=== PATIENT | male | born 1975 | race Caucasian/White ===

== ENCOUNTER 2020-07-13 11:16 | Day surgery (SDC) | payer OTHER, SELFPAY ==
--- NOTE | 2020-07-12 16:37 | HP_ITS ---
DATE OF SERVICE: 07/13/2020 PREOPERATIVE DIAGNOSIS: Plantar fasciitis, right foot. PLANNED PROCEDURE: Right foot [place] plantar fasciotomy with Interfyl injection. PAST MEDICAL HISTORY: Broken bones, measles, flat feet. CURRENT MEDICATIONS: None. SURGICAL HISTORY: Eye surgery. FAMILY HISTORY: Denies. SOCIAL HISTORY: The patient is a nonsmoker. Denies any illicit drug use. Relates occasional alcohol use. He is single with no children and listed in the . ALLERGIES: NO KNOWN DRUG ALLERGIES. HOSPITALIZATIONS: Denies. REVIEW OF SYSTEMS: Within normal limits. HISTORY OF PRESENT ILLNESS: This is a 45-year-old male, who presents to my office with continued pain in his right plantar heel, present for several months. The patient has had significant pain with exercising, running, and jogging. This become unresolved, significantly aggravated with standing, walking first thing in the morning after rest and exercise such as running. The patient has tried rest, change in shoes, stretching, cortisone injections x2, icing, and anti-inflammatories without any resolution. The patient tried to move forward with surgical intervention. PHYSICAL EXAMINATION: GENERAL: Reveals a pleasant, alert, well-nourished, well-developed, well-hydrated individual, who demonstrates proper hygiene and body habitus, in no acute distress. He is oriented x3. NEUROLOGIC: Reveals intact sensorium. Pain sensation is normal. Vibratory sensation is intact. Pinprick sensation is normal. There is no anesthesia, burning, paresthesias, or tingling bilaterally. Tarsal tunnel is negative as well as supportive piece to medial calcaneal nerves. VASCULAR: DP and PT pulses are 3/4 bilaterally. Capillary refill is immediate to all digits. Skin temperature, elasticity and turgor and hair growth are normal bilaterally. Pigmentation is normal bilaterally. There is no edema bilaterally. DERMATOLOGIC: Reveals normal texture elasticity and turgor. There are no masses. Interspaces are clear. ORTHOPEDIC: Reveals bilateral pes planus structure. Muscle strength is 5/5 in a symmetrical fashion bilaterally. Heel pain inspection reveals pain on palpation of the plantar fascia of the medial and central bands, intrinsic musculature, infracalcaneal bursa, and medial calcaneal tubercle. There is no pain to the posterior-superior heel. Achilles bursa or tendon sinus tarsi peroneal with lateral heel compression. No limited subtalar joint range of motion, calor, or ecchymosis of the right foot. PLAN: The patient is scheduled for [place] plantar fasciotomy with interval injection surgery. The surgery was discussed in detail with the patient including risks of surgery, not having surgery, the potential surgical complications, anesthesia, and the usual postoperative course. No guarantees were given. Discussed with the patient potential complications such as, but not limited to delayed or nonhealing, chronic pain, recurrence, shortened toes, joint stiffness, failure of the procedure, loss of toe, foot, life, or limb. Alternatives to procedure were also discussed including conservative care. The patient would like to proceed with surgical treatment as well as he will obtain reoperative labs as well as medical clearance for surgery and anesthesia from his primary care physician. He is made aware to stop any and all blood thinners in a week prior to surgery. The patient is made aware of the fact driving may not be allowed during portion of postoperative period. Denies any smoking tobacco products. The patient is to avoid NSAIDs after surgery. He will be partial weightbearing in the right foot with a walking cast boot, which the patient has already at home. The mass that was checked. There are no contraindications for narcotic pain medication. The patient was given Percocet 5/325 mg for breakthrough pain and can take Tylenol as needed postoperatively. Mallika Fernandez DPM LP/PRADIP / [id number]
[2020-07-13 11:52] VITALS: BP 130/83; PULSE 75; RESP 16; TEMP 36.5; O2SAT 98; BMI 28.8
[2020-07-13] MEDS: Lactated Ringers 1,000 ML 50 ML IVCONT (12:15)
--- NOTE | 2020-07-13 12:49 | MHC.SHP ---
Pre-Procedural Eval Section A The patient is an INPATIENT: No Changes since office visit: Yes Patient answered all questions; No Cold of Flu in the past 2 weeks, No New Medical Problems and No Changes in Medication The History & Physical has been completed within 30 days and I have reviewed it.: Yes Section B Chief Complaint: Planter fascial Fibromatosis Allergies: Allergies Allergy/AdvReac Type Severity Reaction Status Date / Time No Known Allergies Allergy Verified 07/13/20 11:39 Plan Patient has been examined and remains a candidate for the planned procedure
--- NOTE | 2020-07-13 13:39 | HO.ANESPROP2 ---
PMF Surgical History Surgical History Hx of eye surgery Social History Social History Smoking Status: Never smoker Use of substances other than those prescribed or required for medical reasons: No Advance Directives: No Advance Directives Information Provided: Yes Meds Allergies Allergy/AdvReac Type Severity Reaction Status Date / Time No Known Allergies Allergy Verified 07/13/20 11:39 Home Medications Medication Instructions Recorded Confirmed Type No Known Home Meds 07/13/20 07/13/20 History Exam Exam Date and Time: July 13, 2020 1339 Height,Weight and Vital Signs: Height 6 ft 1 in Weight 98.883 kg Last Vital Signs Temp 97.7 F 07/13/20 11:52 Pulse 75 07/13/20 11:52 Resp 16 07/13/20 11:52 BP 130/83 07/13/20 11:52 Pulse Ox 98 07/13/20 11:52
[2020-07-13] MEDS: ceFAZolin Sodium/Dextrose,Iso 2 GM/50 ML PIGGYBACK IV (13:44)
--- NOTE | 2020-07-13 14:19 | PM.OP ---
Brief Operative Note Date of Service: 07/13/20 Pre-op diagnosis: Plantar fasciitis right foot Post-op diagnosis: same Procedure: Right foot [place] plantar fasciotomy with interfyl injection Surgeon: Mallika Fernandez Anesthesia: MAC and local Estimated blood loss (mL): 1 Tourniquet time (min): 8 Pathology: none sent Condition: stable Disposition: PACU
[2020-07-13 14:23] VITALS: BP 103/71; PULSE 84; RESP 16; TEMP 36.4; O2SAT 98
[2020-07-13 14:37] VITALS: BP 115/79; PULSE 68; RESP 18; O2SAT 98
--- NOTE | 2020-07-13 15:25 | HO.POSTANES ---
Post Anesthesia Evaluation Post Anesthesia Evaluation Vital Signs: Vital Signs Temp Pulse Resp BP Pulse Ox 07/13/20 14:37 97.6 F 68 18 115/79 98 07/13/20 14:23 97.6 F 84 16 103/71 98 07/13/20 11:52 97.7 F 75 16 130/83 98 Anesthesia: General (TIVA) Mental Status: Awake Pain Control: Satisfactory Nausea/Vomiting: None Hydration: Adequate Anesthesia-Related Issues: No Anes. Related Issues
--- NOTE | 2020-07-24 21:09 | OP_ITS ---
SURGEON: Mallika Fernandez DPM PREOPERATIVE DIAGNOSIS: Plantar fasciitis, right foot. POSTOPERATIVE DIAGNOSIS: Plantar fasciitis, right foot. PROCEDURE PERFORMED: Right foot [place] plantar fasciotomy with Interfyl injection. ESTIMATED BLOOD LOSS: Less than 1 mL. COMPLICATIONS: None. ANESTHESIA: Monitored anesthetic care with local consisting preoperatively of 18 mL of 0.5% Marcaine plain and 2% lidocaine plain. ASSISTANTS: None. SPECIMENS: None. HEMOSTASIS: Pneumatic ankle tourniquet set at 225 mmHg for 8 minutes. INDICATIONS FOR SURGERY: The patient has had playful plantar fasciitis noted to the right foot that has had failed multiple conservative treatments such as rest, ice, stretching, anti-inflammatories, bracing, splinting, and cortisone injections. The patient discussed both surgical and conservative therapies in detail. No guarantees were given, and the above-mentioned surgery was discussed in detail with the patient including risks and possible complications, and the patient was able to sign a written and gave oral consent. PROCEDURE IN DETAIL: The patient was brought into the operating room, placed on the operating table in supine position. A preoperative antibiotic was administered of 2 g of cefazolin. The right foot was anesthetized with the above-mentioned local anesthesia, then the right foot was scrubbed, prepped and draped in a sterile manner. The right foot was exsanguinated, and attention was directed to the right plantar heel, where preoperatively, areas of maximal tenderness were denoted and a grid was placed with a 0.5 x 0.5 cm. A K-wire was placed perpendicular to the skin, and small holes were made in the bottom of the foot in the grid. The K-wire was removed, and the [place] wand was inserted perpendicular to the plantar fascia and the plantar fascia was ablated in a grid fashion. After the [place] wand was removed, the holes in the bottom of the foot were covered with Steri-Strips. A postoperative injection of a mixture of 4 mL of 0.5% Marcaine plain and 1.5 mL of Interfyl was injected about the right heel. The right foot was then dressed with Betadine-soaked gauze, 4x4s, fluffs, Kerlix, cast padding, and Socrates bandage. After 8 minutes, pneumatic ankle tourniquet was deflated. Prompt capillary refill was noted to all 5 digits. The patient tolerated the procedure and anesthesia well. The patient was transferred to the recovery room with vital signs stable and vascular status at preoperative levels. Following a period of postoperative recovery, the patient will be discharged home with written and oral postoperative instructions. The patient is to follow up in my office for all postoperative followup care. The patient was given Percocet 5/325 mg as needed for breakthrough pain and can take Tylenol as needed. The patient is to avoid any NSAIDs and ice, and the patient can be partial weightbearing in a walking cast boot, which the patient has at home. Mallika Fernandez DPM LP/PRADIP / [id number]
== END 2020-07-13 15:02 ==
LOC: HO.SSS 11:17
PROVIDERS: Visit Provider Podiatrist
PROC: (CPT 29893; principal; 2020-07-13 12:50)
DX: M72.2 Plantar fascial fibromatosis (principal)
CPT/HCPCS: 28008; J0690; J2250; Q4171